=== PATIENT | male | born 1965 | race African-American/Black ===

== ENCOUNTER 2018-11-02 06:41 | Emergency (ER) | payer MEDICAID ==
[~2018-11-02] VITALS: Ht 182.9 cm; Wt 86.0 kg
[2018-11-02] MEDS ORDERED: LIDOCAINE HCL/PF 1% 10 MG/ML 5ML VIAL IJ ONE (08:00)
[2018-11-02 09:16] VITALS: BP 189/109
== END 2018-11-02 09:20 | disposition home or self-care (01) ==
LOC: ER 06:41
DX: H60.11 Cellulitis of right external ear (principal); H66.41 Suppurative otitis media, unspecified, right ear; F17.210 Nicotine dependence, cigarettes, uncomplicated
CPT/HCPCS: 10060; 99283; J3490; Z7610

== ENCOUNTER 2022-03-18 06:45 | Emergency (ER) | payer MEDICAID ==
[~2022-03-18] VITALS: Ht 180.3 cm; Wt 98.0 kg
[2022-03-18 07:06] VITALS: BP 174/96
[2022-03-18] MEDS ORDERED: LIDOCAINE HCL 1% 20ML VIAL (Pyxis) INJ INFIL ONE (08:45)
[2022-03-18] MEDS ORDERED: LIDOCAINE HCL 1% 10 MG/ML 10ML VIAL IJ NR (09:00)
== END 2022-03-18 09:57 | disposition home or self-care (01) ==
LOC: ER 06:45
DX: L02.01 Cutaneous abscess of face (principal); I10 Essential (primary) hypertension
CPT/HCPCS: 10060; 99284; J3490